=== PATIENT | male | born 2005 | race Caucasian/White ===

== ENCOUNTER 2024-02-20 07:09 | Outpatient (OUT) | payer OTHER, SELFPAY ==
--- NOTE | 2024-02-20 07:18 | CA_ITS ---
Patient Name: OLVIN AGARWAL MR#: [id number] : 2005 Exam Date: 02/20/2024 Ordering Doctor: DR Rebeca Adams M.D. ECHOCARDIOGRAM REPORT PROCEDURE: CA ECHO DOPPLER COMPLETE INDICATIONS: Syncope and collapse COMPARISON: None. DESCRIPTION: COMPLETE ECHOCARDIOGRAM Real-time transthoracic echocardiography with 2D, M-mode, spectral and color flow Doppler performed. QUALITY: Technical quality was good. LEFT VENTRICLE: Normal chamber size. Normal left ventricular wall thickness. Global left ventricular systolic function is normal. No wall motion abnormalities.Calculated left ventricular ejection fraction is 57% LV EF: DIASTOLIC: Normal diastolic function. ATRIAL SEPTUM: LEFT ATRIUM: Normal chamber size. RIGHT ATRIUM: Normal chamber size. RIGHT VENTRICLE: Normal chamber size. Normal right ventricular systolic function. TRICUSPID VALVE: Normal mobility and thickness. No stenosis with trivial regurgitation. No evidence of pulmonary hypertension.RVSP 29mmHg MITRAL VALVE: Normal mobility and thickness. No evidence of mitral valve stenosis. There is no mitral annular calcification. Trivial mitral regurgitation. AORTIC VALVE: Normal trileaflet appearance. No visible sclerosis. Normal leaflet mobility. No evidence of aortic valve stenosis. No aortic regurgitation. AORTIC ROOT: Normal diameter and appearance. PULMONIC VALVE: Normal thickness and mobility. No stenosis. Mild regurgitation. PERICARDIUM: No evidence of pericardial effusion. IVC: Collapes with inspirations. Normal size. PLEURA: CONCLUSION: Normal left ventricle chamber size. Normal left ventricular wall thickness. Global left ventricular Systolic function is normal. No wall motion abnormalities. Calculated left ventricular ejection fraction is 57%. Normal diastolic function. Normal right ventricle chamber size. Normal right ventricular systolic function. No evidence of pulmonary hypertension. RVSP 29mmHg No significant valvular abnormalities. Adult Echocardiography Procedure Report Left Ventricle LVEDD (3.7 - 5.6 cm): 5.32 cm LVESD (2.2 - 4.0 cm): 3.69 cm LVIVS thickness (0.6 - 1.2 cm): 0.80 cm LVPW thickness (0.5 - 1.0 cm): 0.89 cm e': 0.17 m/s E - e': 4.82 LVOT Max Gradient: 2.83 mm[Hg] LVOT Area (cm2): 0.84 m/s Peak Velocity (LVOT): 0.84 m/s Mean Velocity (LVOT): 0.56 m/s LVOT Diameter 2.25 cm Left Ventricular Ejection Fraction: 57.34 % Left Atrium LA Volume Index (2D A2C): 30.28 ml/m2 Left Atrium Systolic Dimension: 3.99 cm Mitral Valve MV E to A Ratio: 2.00 MV Max Gradient: MV Mean Gradient: Mitral Valve A-Wave Peak Velocity: 0.41 m/s Mitral Valve E-Wave Peak Velocity: 0.82 m/s Cardiovascular Orifice Area: Right Ventricle RV Internal Diastolic Dimension: 3.73 cm Aorta AO Root Diam: 2.91 cm Ascending Ao Diam: 2.43 cm Aortic Valve AoV Area (Peak Yung): 2.89 cm2, 2.89 cm2 AoV Area (VTI): 2.86 cm2, 2.86 cm2 Deceleration Marin: Pressure Half-Time: Peak Velocity(Antegrade Flow): 1.15 m/s Peak Gradient(Antegrade Flow): 5.30 mm[Hg] Mean Velocity(Antegrade Flow): 0.81 m/s Mean Gradient(Antegrade Flow): 2.96 mm[Hg] Velocity Time Integral: 24.22 cm Tricuspid Valve Peak Velocity (Regurgitant Flow): 2.46 m/s, 2.55 m/s Peak Velocity: Pulmonic Valve Mean Gradient: 2.35 mm[Hg], 2.05 mm[Hg] Mean Velocity: 0.73 m/s, 0.67 m/s Peak Velocity: 0.94 m/s Peak Gradient: 3.75 mm[Hg], 3.27 mm[Hg] Right Atrium Right Atrium Systolic Pressure: 46.47 ml, 46.47 ml Dictated by: Vivi Marsh MD on 02/21/2024 at 20:18 Approved by: Vivi Marsh MD on 02/21/2024 at 20:23
--- NOTE | 2024-02-20 07:18 | ECG_ITS ---
[facility] Test Date: 2024-02-20 Pat Name: OLVIN AGARWAL Department: Room: - Gender: Male Bobbin Doffer: : 2005 Requested By: CHARLIE PARK Order Number: [id number] Reading MD: IDRIS ROBERTO Measurements Intervals [place] Rate: 63 P: 63 FL: 121 QRS: 38 QRSD: 105 T: 7 QT: 367 QTc: 377 Interpretive Statements SINUS RHYTHM WITH MARKED SINUS ARRHYTHMIA Non-Specific T wave inversion in III No previous ECG available for comparison Electronically Signed On 02-21-2024 6:00:59 EST by IDRIS ROBERTO
[2024-02-20 07:43] LABS: Basophils Percent Auto 0.2 % (0.2-2.0); Eosinophils Percent Auto 0.6 % (0.9-7.0); Hematocrit 45.8 % (42.0-54.0); Hemoglobin 15.7 g/dL (14.0-18.0); Immature Granulocytes Abs Auto 0.01 10^3/uL (0.00-0.03); Immature Granulocytes Pct Auto 0.2 % (0.0-0.5); Lymphocytes Absolute Auto 2.8 10^3/uL (1.2-3.8); Lymphocytes Percent Auto 43.5 % (20.5-60.0); Mean Corpuscular HGB Conc 34.3 g/dL (29.9-35.2); Mean Corpuscular Hemoglobin 29.6 pg (25.9-34.0); Mean Corpuscular Volume 86.4 fL (80.0-94.0); Mean Platelet Volume 10.3 fL (9.5-13.5); Monocytes Absolute Auto 0.4 10^3/uL (0.3-0.8); Monocytes Percent Auto 5.7 % (1.7-12.0); Neutrophils Absolute Auto 3.2 10^3/uL (1.4-6.5); Neutrophils Percent Auto 49.8 % (43.0-75.0); Platelet Count 192 10^3/uL (150-450); Red Cell Distribution Width 11.9 % (11.0-15.0); White Blood Count 6.5 10^3/uL (4.0-11.0)
[2024-02-20 08:36] LABS: Anion Gap 13.7; BUN Creatinine Ratio 11.8; Carbon Dioxide 27.5 mmol/L (21.0-32.0); Chloride 107 mmol/L (98-107); Estimated GFR (African America >60 (>=60 mL/min/1.73m^2); Estimated GFR (Non-African Ame >60 (>=60 mL/min/1.73m^2); Glucose 100 mg/dL (74-106); Potassium 4.2 mmol/L (3.5-5.1); Sodium 144 mmol/L (136-145); TSH W/ REFLEX FT4 0.968 uIU/mL (0.516-4.130)
== END 2024-02-20 07:10 | disposition home or self-care (01) ==
LOC: LAB 07:14
PROVIDERS: PCP Family Medicine; Visit Provider Family Medicine
DX: R55 Syncope and collapse (principal)
CPT/HCPCS: 36415; 80048; 84443; 85025; 93005; 93306